=== PATIENT | male | born 1960 | race African-American/Black ===

== ENCOUNTER 2016-12-06 04:30 | Emergency (ER) | payer OTHER ==
[~2016-12-06] VITALS: Ht 170.2 cm; Wt 104.3 kg
[2016-12-06] MEDS ORDERED: BACI3.5O8 OP (04:53)
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
[2016-12-06] MEDS ORDERED: DIPHTH,PERTUSS(ACELL),TET TOX 0.5 ML DISP.SYRIN. VAX IM ONE (05:00)
[2016-12-06] MEDS ORDERED: BACITRACIN TOPICAL OINT 14GM TUBE. TP ONE (05:00)
[2016-12-06 05:15] VITALS: BP 128/96
== END 2016-12-06 05:18 | disposition home or self-care (01) ==
LOC: ER 04:30
DX: T22.211A Burn of second degree of right forearm, initial encounter (principal); X19.XXXA Contact with other heat and hot substances, initial encounter; Y93.89 Activity, other specified; Y99.8 Other external cause status; Y92.89 Other specified places as the place of occurrence of the external cause
CPT/HCPCS: 90471; 90715; 99283-25